=== PATIENT | male | born 1985 | race Caucasian/White ===

== ENCOUNTER 2024-08-09 12:36 | Emergency (ER) | payer BC ==
[2024-08-09] MEDS: Lidocaine 1% 5 ML VIAL INJECT ONE (13:14)
[2024-08-09] MEDS: Diphtheria,Pertussis(Acell),Tetanus Vaccine 0.5 ML Syringe IM ONE (13:27)
== END 2024-08-09 13:46 | disposition home or self-care (01) ==
LOC: MW.ED 12:36
DX: S61.211A Laceration without foreign body of left index finger without damage to nail, initial encounter (principal); Z75.8 Other problems related to medical facilities and other health care; Z88.0 Allergy status to penicillin; Z23 Encounter for immunization; W26.0XXA Contact with knife, initial encounter; Y93.89 Activity, other specified
CPT/HCPCS: 12001; 90471; 90715; 99282-25; 99283; J3490